=== PATIENT | male | born 1985 | race African-American/Black ===

== ENCOUNTER 2022-01-13 18:24 | Inpatient (IN) | payer OTHER ==
[~2022-01-13] VITALS: Ht 172.7 cm; Wt 91.2 kg
[2022-01-13] MEDS ORDERED: SODIUM CHLORIDE 0.9% 1,000 ML IV ONE ×2 (18:45)
[2022-01-13 19:44] LABS: Basophils # (auto) 0.2 10 ^3/uL (0-0.2); Basophils % (auto) 1.2 % (0.0-2.0); Eosinophils # (auto) 0.2 10 ^3/uL (0-0.8); Eosinophils % (auto) 1.9 % (0.0-7.0); Hematocrit 46.5 % (41.0-53.0); Hemoglobin 15.6 g/dL (13.5-17.5); Lymphocytes # (auto) 0.6 10 ^3/uL (0.4-5.4); Lymphocytes % (auto) 4.5 % (10.0-50.0); Mean Corpuscular Hemoglobin 30.2 pg (28.0-32.0); Mean Corpuscular Hgb Conc. 33.6 g/dL (32.0-36.0); Mean Corpuscular Volume 89.9 fL (80.0-100.0); Monocytes # (auto) 0.2 10 ^3/uL (0-1.3); Monocytes % (auto) 1.7 % (0.0-12.0); Neutrophils # (auto) 11.9 10 ^3/uL (1.6-8.6); Neutrophils % (auto) 90.7 % (37.0-80.0); Red Blood Cells 5.18 10^6/uL (4.5-5.90); Red Cell Distribution Width 14.2 % (11.8-14.3); White Blood Cell 13.1 10^3/uL (4.4-10.8)
[2022-01-13 19:58] LABS: Albumin 3.6 g/dL (3.4-5.0); BUN/Creatinine Ratio 10.1; Calcium 8.5 mg/dL (8.5-10.1); Potassium 4.3 mmol/L (3.5-5.1)
[2022-01-13 20:01] LABS: Bilirubin, Total 0.7 mg/dL (0.2-1.0); Total Protein 6.9 g/dL (6.4-8.2)
[2022-01-13 23:14] LABS: Urine Bacteria NONE SEEN /hpf (None Seen); Urine Blood Negative /uL (Negative); Urine Mucus FEW (None Seen); Urine Specific Gravity 1.028 (1.001-1.035); Urine WBC 2 /hpf (0 - 3)
[2022-01-14] VITALS (7 sets, daily range): BP systolic 98–115; BP diastolic 57–71
[2022-01-14] MEDS ORDERED: metroNIDAZOLE 500MG/100ML 100 ML IV ONE (00:15)
[2022-01-14] MEDS ORDERED: DEXTROSE (50%) 50ML SYRG IV PRN (00:15)
[2022-01-14] MEDS ORDERED: MORPHINE SULFATE INJ 2 MG/ml SYRG IV PRN ×2 (00:15)
[2022-01-14] MEDS ORDERED: NITROGLYCERIN 0.4 MG SL TAB SL PRN (00:15)
[2022-01-14] MEDS ORDERED: HYDROcodone-ACET 5/325MG TAB PO PRN (00:15)
[2022-01-14] MEDS ORDERED: ACETAMINOPHEN 325 MG TAB PO PRN (00:15)
[2022-01-14] MEDS: ONDANSETRON HCL 4 MG/2 ML VIAL IV PRN ×2 (00:50→06:17)
[2022-01-14] MEDS ORDERED: SOD CHL 0.45% 1,000 ML IV SCH (01:30)
[2022-01-14] MEDS ORDERED: INSLANTI SC (03:25)
[2022-01-14] MEDS ORDERED: INSLISPI SC (03:25)
[2022-01-14] MEDS: metroNIDAZOLE 500MG/100ML 100 ML IV SCH ×3 (05:52→22:04)
[2022-01-14] MEDS: ACCU-CHEK COMFORT CURVE STRIP VI SCH ×4 (05:53→23:59)
[2022-01-14] MEDS: InsuLIN REG 1unit/0.01ml Soln (100units/ml) SC SCH ×3 (06:09→17:21)
[2022-01-14 06:47] LABS: Basophils # (auto) 0 10 ^3/uL (0-0.2); Basophils % (auto) 0.2 % (0.0-2.0); Eosinophils # (auto) 0 10 ^3/uL (0-0.8); Hematocrit 43.1 % (41.0-53.0); Hemoglobin 14.3 g/dL (13.5-17.5); Lymphocytes # (auto) 1.7 10 ^3/uL (0.4-5.4); Lymphocytes % (auto) 10.5 % (10.0-50.0); Mean Corpuscular Hemoglobin 29.9 pg (28.0-32.0); Mean Corpuscular Hgb Conc. 33.1 g/dL (32.0-36.0); Mean Corpuscular Volume 90.1 fL (80.0-100.0); Monocytes # (auto) 0.9 10 ^3/uL (0-1.3); Monocytes % (auto) 5.6 % (0.0-12.0); Neutrophils # (auto) 13.8 10 ^3/uL (1.6-8.6); Neutrophils % (auto) 83.7 % (37.0-80.0); Red Blood Cells 4.79 10^6/uL (4.5-5.90); Red Cell Distribution Width 14.5 % (11.8-14.3); White Blood Cell 16.5 10^3/uL (4.4-10.8)
[2022-01-14 07:05] LABS: Calcium 8.5 mg/dL (8.5-10.1); Potassium 4.3 mmol/L (3.5-5.1)
[2022-01-14 07:12] LABS: Albumin 3.4 g/dL (3.4-5.0); BUN/Creatinine Ratio 15.7; Bilirubin, Total 0.8 mg/dL (0.2-1.0); Total Protein 6.2 g/dL (6.4-8.2)
[2022-01-14] MEDS ORDERED: IOHEXOL 300 MG/ML 100ML BOTTLE IJ ONE (08:51)
[2022-01-14] MEDS: FAMOTIDINE (10MG/ML) 2ML VL IV SCH ×2 (09:31→22:04)
[2022-01-14] MEDS ORDERED: cefTRIAXone 1GM/50ML D5W 50 ML IV ONE (10:00)
[2022-01-14] MEDS: SOD CHL 0.45% 1,000 ML IV SCH ×2 (10:07→18:04)
[2022-01-14 10:44] LABS: Amylase 43 U/L (25-115); Lipase 51 U/L (73-393)
[2022-01-14] MEDS ORDERED: INSULIN LANTUS (GLARGINE) 1 /0.01ml (100units/ml) SC ONE (10:45)
[2022-01-14 11:17] LABS: Alcohol, Urine < 3.0 mg/dL (0-10); Amphetamine Screen, Urine NEGATIVE (NEGATIVE); Barbiturate Scree,Urine NEGATIVE (NEGATIVE); Benzodiazephine Screen, Urine NEGATIVE (NEGATIVE); Cannabinoid Screen, Urine POSITIVE (NEGATIVE); Cocaine Screen, Urine NEGATIVE (NEGATIVE); Opiate Scree,Urine NEGATIVE (NEGATIVE); Phencyclidine Screen, Urine NEGATIVE (NEGATIVE)
[2022-01-15] MEDS: InsuLIN REG 1unit/0.01ml Soln (100units/ml) SC SCH ×3 (00:01→12:20)
[2022-01-15] MEDS: SOD CHL 0.45% 1,000 ML IV SCH ×4 (02:03→12:43)
[2022-01-15 05:00] VITALS: BP 116/81
[2022-01-15] MEDS: ACCU-CHEK COMFORT CURVE STRIP VI SCH ×2 (05:44→12:08)
[2022-01-15] MEDS: metroNIDAZOLE 500MG/100ML 100 ML IV SCH ×2 (05:56→14:00)
[2022-01-15 06:19] LABS: Basophils # (auto) 0.1 10 ^3/uL (0-0.2); Basophils % (auto) 0.7 % (0.0-2.0); Eosinophils # (auto) 0.1 10 ^3/uL (0-0.8); Eosinophils % (auto) 1.2 % (0.0-7.0); Hematocrit 39.4 % (41.0-53.0); Hemoglobin 13.5 g/dL (13.5-17.5); Lymphocytes # (auto) 2.2 10 ^3/uL (0.4-5.4); Lymphocytes % (auto) 19.6 % (10.0-50.0); Mean Corpuscular Hemoglobin 30.4 pg (28.0-32.0); Mean Corpuscular Hgb Conc. 34.2 g/dL (32.0-36.0); Mean Corpuscular Volume 88.9 fL (80.0-100.0); Monocytes # (auto) 0.9 10 ^3/uL (0-1.3); Monocytes % (auto) 7.6 % (0.0-12.0); Neutrophils # (auto) 7.9 10 ^3/uL (1.6-8.6); Neutrophils % (auto) 70.9 % (37.0-80.0); Red Blood Cells 4.43 10^6/uL (4.5-5.90); White Blood Cell 11.2 10^3/uL (4.4-10.8)
[2022-01-15 06:55] LABS: Albumin 2.9 g/dL (3.4-5.0); BUN/Creatinine Ratio 9.7; Potassium 3.7 mmol/L (3.5-5.1)
[2022-01-15 06:59] LABS: Bilirubin, Total 0.5 mg/dL (0.2-1.0); Total Protein 5.6 g/dL (6.4-8.2)
[2022-01-15] MEDS ORDERED: INSULIN LANTUS (GLARGINE) 1 /0.01ml (100units/ml) SC SCH (07:00)
[2022-01-15 08:30] VITALS: BP 129/81
[2022-01-15] MEDS ORDERED: cefTRIAXone 1GM/50ML D5W 50 ML IV SCH (09:00)
[2022-01-15] MEDS: FAMOTIDINE (10MG/ML) 2ML VL IV SCH (09:08)
[2022-01-15] MEDS ORDERED: PANT40TA2 PO (10:37)
[2022-01-15] MEDS ORDERED: ONDA-144 PO (10:37)
[2022-01-15 12:30] VITALS: BP 131/94
== END 2022-01-15 17:00 | disposition home or self-care (01) | DRG 871 ==
LOC: ER 18:24 → OVERFLOW 01-14 00:14 → CENTRAL 01-14 01:37
PROVIDERS: ADMIT Nurse Practitioner Family; ATTEND Internal Medicine
DX: A41.9 Sepsis, unspecified organism (principal); E11.10 Type 2 diabetes mellitus with ketoacidosis without coma; N39.0 Urinary tract infection, site not specified; D72.829 Elevated white blood cell count, unspecified; Z20.822 Contact with and (suspected) exposure to COVID-19; E11.65 Type 2 diabetes mellitus with hyperglycemia; E66.9 Obesity, unspecified; F17.200 Nicotine dependence, unspecified, uncomplicated; Z79.4 Long term (current) use of insulin; Z79.899 Other long term (current) drug therapy; Z68.30 Body mass index [BMI] 30.0-30.9, adult
CPT/HCPCS: 36415; 36600; 71045; 74178; 80053; 80307; 81001; 82010; 82150; 82805; 82962; 83605; 83690; 85025; 87040; 87086; 87426; 93005; 96365; G0378; J0696; J1815; J2405; J3490